=== PATIENT | female | born 1995 | race Caucasian/White ===

== ENCOUNTER 2017-09-04 15:07 | Emergency (ER) | payer MEDICAID ==
[2017-09-04 16:59] LABS: ABS Basophils 0.1 10^3/ul (0-0.2); ABS Eosinophils 0.1 10^3/ul (0-0.6); ABS Lymphocytes 2.4 10^3/ul (1.0-4.8); ABS Monocytes 0.5 10^3/ul (0-0.8); ABS Neutrophils 3.7 10^3/ul (1.5-7.7); ABS Nucleated RBC 0 10^3/ul; Hematocrit 42 % (35-47); Hemoglobin 14.4 g/dl (12.0-16.0); Lymphocyte % 35.6 % (25-47); Mean Corpuscular HGB Conc 35 g/dl (31-36); Mean Corpuscular Hemoglobin 31 pg (27-31); Mean Corpuscular Volume 90 fL (80-97); Mean Platelet Volume 8 um3 (7.4-10.4); Nucleated Red Blood Cells % 0; Platelet Count 233 10^3/ul (150-450); Red Blood Count 4.62 10^6/ul (4.0-5.4); Red Cell Distribution Width 12 % (10.5-15); White Blood Count 6.7 10^3/ul (3.5-10.8)
[2017-09-04 17:19] LABS: EGFR Non-African American 92.8 (>60)
--- NOTE | 2017-09-04 18:14 | RAD ---
Indication: Right adnexal pain. Real-time sonography of the pelvis was performed. The uterus measures 5.9 x 2.3 x 3.2 cm. Endometrial echo measures 3 mm. Right ovary measures 2.2 x 1.3 x 2.1 cm. Left ovary measures 2.3 x 1.5 x 1.6 cm. Color Doppler demonstrates flow in both ovaries. IMPRESSION: Unremarkable pelvic ultrasound.
[2017-09-04 19:48] VITALS: BP 93/53
--- NOTE | 2017-09-05 13:28 | ED ---
eJffery Jiménez Julia, scribed for Shailesh Handley MD on 09/04/17 at 1651 . Abdominal Pain/Female - HPI Summary HPI Summary: This patient is a 22 year old F presenting to [facility] with a chief complaint of intermittent sharp lower abdominal pain for the past four days worsening in the past two days only to the RLQ. Patient reports nausea. Patient denies urinary or bowel symptoms. The patient rates the pain 7/10 in severity. Patient denies changes in symptoms by anything. She reports recent menstrual period lasting a week and half that subsided for a few days and has returned recently. She states this is abnormal for her. She denies possibility of . Patient has Nexplanon implant. - History of Current Complaint Chief Complaint: EDAbdPain Stated Complaint: ABD PAIN/OB PROBLEM Hx Obtained From: Patient Hx Last Menstrual Period: Current, receently irregular Onset/Duration: Gradual Onset, Lasting Days, Worse Since - 2 days ago Timing: Intermittent Episode Lasting Pain Intensity: 7 Pain Scale Used: 0-10 Numeric Location: Discrete At: RLQ Character: Sharp Aggravating Factor(s): Nothing Alleviating Factor(s): Nothing Associated Signs and Symptoms: Positive: Vaginal Bleeding, Nausea. Negative: Urinary Symptoms, Diarrhea - or other bowel symptoms Allergies/Adverse Reactions: Allergies Allergy/AdvReac Type Severity Reaction Status Date / Time No Known Allergies Allergy Verified 09/04/17 15:09 PMH/Surg Hx/FS Hx/Imm Hx Opthamlomology History: Denies: Hx Legally Blind EENT History: Denies: Hx Deafness Infectious Disease History: No Infectious Disease History: Denies: Traveled Outside the [place] in Last 30 Days - Family History Known Family History: Positive: Other - alcoholism - father - Social History Hx Substance Use: Yes Review of Systems Positive: Abdominal Pain, Nausea. Negative: Diarrhea Genitourinary: Other - vaginal bleeding Positive: no symptoms reported - urinary All Other Systems Reviewed And Are Negative: Yes Physical Exam - Summary Physical Exam Summary: Appearance: The patient is well-nourished in no acute distress and in no acute pain. Skin: The skin is warm and dry and skin color reflects adequate perfusion. HEENT: The head is normocephalic and atraumatic. The pupils are equal and reactive. The conjunctivae are clear and without drainage. Nares are patent and without drainage. Mouth reveals moist mucous membranes and the throat is without erythema and exudate. The external ears are intact. The ear canals are patent and without drainage. The tympanic membranes are intact. Neck: the neck is supple with full range of motion and non-tender. There are no carotid bruits. There is no neck vein distension. Respiratory: Chest is non-tender. Lungs are clear to auscultation and breath sounds are symmetrical and equal. Cardiovascular: Heart is regular rate and rhythm. There is no murmur or rub auscultated. There is no peripheral edema and pulses are symmetrical and equal. Abdomen: The abdomen is soft with mild tenderness to the RLQ. There are normal bowel sounds heard in all four quadrants and there is no organomegaly palpated. Musculoskeletal: There is no back tenderness noted. Extremities are non-tender with full range of motion. There is good capillary refill. There is no peripheral edema or calf tenderness elicited. Neurological: Patient is alert and oriented to person, place and time. The patient has symmetrical motor strength in all four extremities. Cranial nerves are grossly intact. Deep tendon reflexes are symmetrical and equal in all four extremities. Psychiatric: The patient has an appropriate affect and does not exhibit any anxiety or depression. Triage Information Reviewed: Yes Vital Signs On Initial Exam: Initial Vitals Temp Pulse Resp BP Pulse Ox 98.1 F 95 16 114/74 97 09/04/17 15:09 09/04/17 15:09 09/04/17 15:09 09/04/17 15:09 09/04/17 15:09 Vital Signs Reviewed: Yes Diagnostics - Vital Signs Vital Signs Temp Pulse Resp BP Pulse Ox 09/04/17 15:09 98.1 F 95 16 114/74 97 - Laboratory Lab Results: Lab Results 09/04/17 09/04/17 09/04/17 Range/Units 16:40 16:40 16:40 WBC 6.7 (3.5-10.8) 10^3/ul RBC 4.62 (4.0-5.4) 10^6/ul Hgb 14.4 (12.0-16.0) g/dl Hct 42 (35-47) % MCV 90 (80-97) fL MCH 31 (27-31) pg MCHC 35 (31-36) g/dl RDW 12 (10.5-15) % Plt Count 233 (150-450) 10^3/ul MPV 8 (7.4-10.4) um3 Neut % (Auto) 54.8 (38-83) % Lymph % (Auto) 35.6 (25-47) % Hubbard % (Auto) 7.4 H (0-7) % Eos % (Auto) 1.0 (0-6) % Baso % (Auto) 1.2 (0-2) % Absolute Neuts (auto) 3.7 (1.5-7.7) 10^3/ul Absolute Lymphs (auto) 2.4 (1.0-4.8) 10^3/ul Absolute Monos (auto) 0.5 (0-0.8) 10^3/ul Absolute Eos (auto) 0.1 (0-0.6) 10^3/ul Absolute Basos (auto) 0.1 (0-0.2) 10^3/ul Absolute Nucleated RBC 0 10^3/ul Nucleated RBC % 0 Sodium 139 (133-145) mmol/L Potassium 4.2 (3.5-5.0) mmol/L Chloride 105 (101-111) mmol/L Carbon Dioxide 29 (22-32) mmol/L Anion Gap 5 (2-11) mmol/L BUN 18 (6-24) mg/dL Creatinine 0.79 (0.51-0.95) mg/dL Est GFR ( Amer) 119.3 (>60) Est GFR (Non-Af Amer) 92.8 (>60) BUN/Creatinine Ratio 22.8 H (8-20) Glucose 76 (70-100) mg/dL Lactic Acid 1.6 (0.5-2.0) mmol/L Calcium 10.1 (8.6-10.3) mg/dL Total Bilirubin 1.00 (0.2-1.0) mg/dL AST 16 (13-39) U/L ALT 12 (7-52) U/L Alkaline Phosphatase 53 (34-104) U/L C-Reactive Protein < 1.00 (< 5.00) mg/L Total Protein 7.5 (6.4-8.9) g/dL Albumin 4.8 (3.2-5.2) g/dL Globulin 2.7 (2-4) g/dL Albumin/Globulin Ratio 1.8 (1-3) Lipase 50 (11.0-82.0) U/L Beta HCG, Quant < 0.60 mIU/mL Result Diagrams: 09/04/17 16:40 09/04/17 16:40 Lab Statement: Any lab studies that have been ordered have been reviewed, and results considered in the medical decision making process. - Additional Comments Diagnostic Additional Comments: A transvaginal US reveals: Unremarkable pelvic ultrasound. ED Physician has reviewed this report. Abdominal Pain Fem Course/Dx - Course Course Of Treatment: Ms. Baker presented with RLQ pain for a couple days. She was tender very low. She was nontender at [facility], Rovsing was negative and there was no rebound or guarding. She denied discharge or bleeding. She has not had intercourse in at least two months as she is inpatient at [facility]. Her W/U here including labs and transvaginal U/S was negative. We talked about CT scan. I think it is low yield with mild pain/tenderness and no lab changes. She chose to wait. She may need that if she gets worse or she may need a pelvic exam although, again I think it is low yield in this situation and she prefers not to She agrees to get rechecked if not improved in just a few days. - Diagnoses Provider Diagnoses: Abdominal pain Discharge - Discharge Plan Condition: Stable Disposition: HOME Patient Education Materials: Acute Abdominal Pain (ED) Referrals: Sumeet Duke MD [Medical Doctor] - 3 Days (Follow up with Dr. Duke in 2-3 days if symptoms do not resolve. If unable to follow up with Dr. Duke please find another physician to follow up with.) Additional Instructions: If you need to follow up with a Physician here in [place] contact information for the Physician referral center is provided below. Physician Referral Center at [facility]: Bertha Skinner Physician Client Service And Consulting Manager or [phone] E-mail address: [email or web address] The documentation as recorded by the Jeffery ulrich Julia accurately reflects the service I personally performed and the decisions made by me, Shailesh Handley MD.
== END 2017-09-04 19:53 | disposition home or self-care (01) ==
LOC: ED 15:07
DX: R10.31 Right lower quadrant pain (principal)
CPT/HCPCS: 36415; 76830; 80053; 83605; 83690; 84702; 85025; 86140; 99282

== ENCOUNTER 2017-10-15 13:15 | Emergency (ER) | payer MEDICAID ==
[2017-10-15 14:32] VITALS: BP 103/65
--- NOTE | 2017-10-15 15:14 | UC ---
Back Pain HPI - HPI Summary HPI Summary: Pt c/o left lower back pain, that radiates posterior thigh to left knee. Denies injury or trauma. - History of Current Complaint Chief Complaint: UCLowerExtremity Stated Complaint: LEG PAIN AND SWELLING Time Seen by Provider: 10/15/17 15:08 Hx Obtained From: Patient Hx Last Menstrual Period: 08/31/17 but unsure ?: No Onset/Duration: Gradual Onset, Lasting Days Timing: Constant Severity Initially: Mild Severity Currently: Moderate Pain Intensity: 7 Back Pain: Is Discrete @ - left lower back, Radiates To - posterior upper thigh and knee Character: Sharp, Dull, Aching, Stiffness, Burning Aggravating Factor(s): Movement, Lifting, Bending Alleviating Factor(s): Rest, Position Associated Signs And Symptoms: Positive: Swelling - Risk Factors AAA Risk Factors: Negative TAD Risk Factors: Negative Cauda Equina Risk Factors: Negative Epidural Abscess Risk Factors: Negative - Allergies/Home Medications Allergies/Adverse Reactions: Allergies Allergy/AdvReac Type Severity Reaction Status Date / Time No Known Allergies Allergy Verified 10/15/17 14:32 Home Medications: Home Medications Ibuprofen 200 mg PO Q6H PRN 10/15/17 [History Confirmed 10/15/17] Melatonin 5 mg PO BEDTIME 10/15/17 [History Confirmed 10/15/17] Nicotine GUM* 2 mg PO QID PRN 10/15/17 [History Confirmed 10/15/17] Nicotine PATCH 14 MG/24 HR* 14 mg TRANSDERM DAILY 10/15/17 [History Confirmed ] OXcarbazepine TAB(*) [Trileptal 300 mg TAB(*)] 150 mg PO BID 10/15/17 [History Confirmed 10/15/17] Topiramate [Topiramate ER 50 mg cap] 50 mg PO BID 10/15/17 [History Confirmed ] PMH/Surg Hx/FS Hx/Imm Hx Previously Healthy: Yes - Surgical History Surgical History: Yes Surgery Procedure, Year, and Place: wisdom teeth - Family History Known Family History: Positive: Other - alcoholism - father - Social History Occupation: Employed Full-time Lives: Nursing Home - out patient rehab Alcohol Use: None Alcohol Amount: hx alcohol Substance Use Type: Other Substance Use Comment - Amount & Last Used: hx Cocaine Smoking Status (MU): Former Smoker Have You Smoked in the Last Year: No Review of Systems Constitutional: Negative Skin: Negative Eyes: Negative ENT: Negative Respiratory: Negative Cardiovascular: Negative Gastrointestinal: Negative Genitourinary: Negative Motor: Negative Neurovascular: Negative Musculoskeletal: Arthralgia - low back, Decreased ROM, Myalgia Neurological: Negative Psychological: Negative Is Patient Immunocompromised?: No All Other Systems Reviewed And Are Negative: Yes Physical Exam Triage Information Reviewed: Yes Appearance: Well-Appearing Vital Signs: Initial Vital Signs Temp 98.6 F 10/15/17 14:25 Pulse 75 10/15/17 14:25 Resp 16 10/15/17 14:25 BP 103/65 10/15/17 14:25 Pulse Ox 100 10/15/17 14:25 Vital Signs Reviewed: Yes Eye Exam: Normal ENT: Positive: Hearing grossly normal Neck exam: Normal Respiratory Exam: Normal Cardiovascular Exam: Normal Musculoskeletal Exam: Normal Musculoskeletal: Positive: Other: - point tendernes at proximal end of sciatic nerve Neurological Exam: Normal Psychological Exam: Normal Skin Exam: Normal Back Pain Course/Dx - Differential Dx/Diagnosis Differential Diagnosis/HQI/PQRI: Herniated Disc, Strain, Sprain Provider Diagnoses: left side sciatica. left side back pain Discharge - Sign-Out/Discharge Documenting (check all that apply): Discharge - Discharge Plan Condition: Stable Disposition: HOME Patient Education Materials: Sciatica (ED), Lower Back Exercises (ED) Referrals: No Primary Care Phys,NOPCP [Primary Care Provider] - Additional Instructions: Please follow up with your PCP or return to clinic as needed. To help alleviate the discomfort of your lower back and posterior left leg, please place a pillow between your knees for sleep. - Billing Disposition and Condition Condition: STABLE Disposition: HOME
== END 2017-10-15 15:30 | disposition home or self-care (01) ==
LOC: UCEAST 13:15
DX: M54.42 Lumbago with sciatica, left side (principal); Z87.891 Personal history of nicotine dependence
CPT/HCPCS: 99211; G0463